=== PATIENT | female | born 1980 | race Caucasian/White ===

== ENCOUNTER → 2016-10-06 | Outpatient (CLI) | payer BC, OTHER | LOC: CT 13:43 | DX: R31.0 Gross hematuria (principal); Z88.1 Allergy status to other antibiotic agents | CPT/HCPCS: J7050; Q9962 ==

== ENCOUNTER → 2021-03-15 | Outpatient (CLI) | payer BC ==
[~2021-03-15] MED LIST: CBD OIL SL; CLEOCIN HCL300 MG PO; IBUPROFEN800 MG PO; NORCO 5-325 TA1 EACH PO; VITAMIN C 500500 MG PO
== END ==
LOC: US 13:46
DX: N63.10 Unspecified lump in the right breast, unspecified quadrant (principal)
CPT/HCPCS: 76641-RT

== ENCOUNTER → 2021-03-16 | Outpatient (CLI) | payer BC | LOC: MAMO 11:20 | DX: N63.10 Unspecified lump in the right breast, unspecified quadrant (principal); R92.8 Other abnormal and inconclusive findings on diagnostic imaging of breast | CPT/HCPCS: 76642-RT; 77066; G0279 ==